=== PATIENT | male | born 1985 | race Hispanic/Latino ===

== ENCOUNTER 2018-04-06 11:11 | Emergency (ER) | payer SELFPAY ==
--- NOTE | 2018-04-06 12:38 | RAD ---
LEFT KNEE FOUR VIEWS: HISTORY: Trauma. Left knee pain. FINDINGS: No acute fracture or dislocation is identified. Minimal degenerative changes are present. POS: [facility]
--- NOTE | 2018-04-06 12:40 | RAD ---
LUMBAR SPINE THREE VIEWS: HISTORY: Trauma. Back pain. FINDINGS: No acute fracture or subluxation is identified. There is partial lumbarization of the L5 vertebral b logan on the left, with associated pseudoarthrosis. POS: [facility]
== END 2018-04-06 12:51 | disposition home or self-care (01) ==
LOC: ERS 11:11
DX: S39.012A Strain of muscle, fascia and tendon of lower back, initial encounter (principal); S83.92XA Sprain of unspecified site of left knee, initial encounter; I10 Essential (primary) hypertension; F41.9 Anxiety disorder, unspecified; F17.210 Nicotine dependence, cigarettes, uncomplicated; W01.0XXA Fall on same level from slipping, tripping and stumbling without subsequent striking against object, initial encounter
CPT/HCPCS: 72100